=== PATIENT | female | born 1980 | race Caucasian/White ===

== ENCOUNTER 2022-02-10 09:23 | Emergency (ER) | payer MEDICAID ==
[~2022-02-10] VITALS: Ht 167.6 cm; Wt 68.0 kg
--- NOTE | 2022-02-10 09:23 | NUR ---
SBAR to JULIO March
[2022-02-10] MEDS ORDERED: IV NORMAL SALINE 1000 ML BAG IV ONE (10:00)
[2022-02-10] MEDS ORDERED: ONDANSETRON 4 MG/2 ML VIAL IV ONE (10:00)
[2022-02-10] MEDS ORDERED: LORAZEPAM 0.5 MG TABLET PO ONE (10:00)
[2022-02-10] MEDS ORDERED: hydrOXYzine HCL 25 MG TABLET PO ONE (10:00)
[2022-02-10] MEDS ORDERED: ONDANSETRON 4 MG/2 ML VIAL ONE (10:06)
[2022-02-10] MEDS ORDERED: LORAZEPAM 0.5 MG TABLET ONE (10:06)
[2022-02-10] MEDS ORDERED: hydrOXYzine HCL 25 MG TABLET ONE (10:06)
[2022-02-10 10:16] LABS: MEAN CORPUSCULAR HEMOGLOBIN 27.2 uug (24.7-32.8); MEAN CORPUSCULAR VOLUME 82.4 fL (75.5-95.3); PLATELET COUNT (AUTO) 262 K/uL (179-408)
[2022-02-10 10:30] LABS: CARBON DIOXIDE 23 mmol/L (21-32); CHLORIDE 100 mmol/L (98-107); CREATININE 0.8 mg/dL (0.6-1.3); GLUCOSE 107 mg/dL (74-106); POTASSIUM 3.5 mmol/L (3.5-5.1); UREA NITROGEN, BLOOD 8 mg/dL (7-18)
--- NOTE | 2022-02-10 12:00 | NUR ---
HR 81 sbp 152/85 rr 18 and saturation of 99% on RA. patient resting comfortably.
[2022-02-10] MEDS ORDERED: SWABABLE VALVE TRANSFER SET EA MC ONE (14:00)
[2022-02-10] MEDS ORDERED: IOHEXOL 300MG/ML 100 ML INFUS..BTL ONE (14:00)
[2022-02-10] MEDS ORDERED: IV NORMAL SALINE 250 ML IV ONE (14:00)
--- NOTE | 2022-02-10 14:06 | NUR ---
Patient taken down for CTA chest.
--- NOTE | 2022-02-10 14:23 | NUR ---
Pt. back from CT.
--- NOTE | 2022-02-10 14:32 | NUR ---
Endorse pt. care to [facility] L[facility].
--- NOTE | 2022-02-10 14:44 | NUR ---
[employer] assumes care. Primary RN Anca is leaving. Patient is waiting for CTA results & disposition.
--- NOTE | 2022-02-10 14:51 | NUR ---
IV removed. Catheter intact and site benign. Pressure and 4x4 gauze applied to site. No bleeding noted. Patient discharged to home in stable condition with brisk steady gait. Written and verbal after care instructions given with [place] director product. Patient verbalizes understanding of instructions. Stressed follow up with primary doctor or return to ER for worsening s/s.
== END 2022-02-10 14:51 | disposition home or self-care (01) ==
LOC: ER 09:23
DX: R07.9 Chest pain, unspecified (principal); Z72.0 Tobacco use
CPT/HCPCS: 99285; 96374; 71275; 71045; 96361; 80048; 85025; 85379; 84484 ×2; 36415; 93005; J2405; Q9967; J7040; A4663

== ENCOUNTER 2022-09-30 08:55 | Emergency (ER) | payer OTHER ==
[~2022-09-30] VITALS: Ht 167.6 cm; Wt 68.0 kg
[2022-09-30] MEDS ORDERED: HYDR-4077 PO (09:14)
[2022-09-30] MEDS ORDERED: SERT50TA PO (09:14)
[2022-09-30] MEDS ORDERED: LORAZEPAM 0.5 MG TABLET PO ONE (09:30)
[2022-09-30] MEDS ORDERED: IV NORMAL SALINE 1000 ML BAG IV ONE (09:30)
[2022-09-30] MEDS ORDERED: ONDANSETRON 4 MG/2 ML VIAL IV ONE (09:30)
[2022-09-30 09:34] LABS: *BILIRUBIN,URIN NEGATIVE (NEGATIVE); *BLOOD, URINE NEGATIVE (NEGATIVE); *CLARITY,URINE CLEAR (CLEAR); *COLOR,URINE YELLOW (YELLOW); *KETONES,URINE NEGATIVE (NEGATIVE); *UROBILINOGEN,URINE 0.2 E.U./dl (NORMAL); LEUKOCYTE ESTERASE ,URINE TRACE (NEGATIVE); NITRITE, URINE NEGATIVE (NEGATIVE); PH,URINE 8.5 (5.0-8.0); UGLUCOSE NEGATIVE (NEGATIVE)
[2022-09-30 09:35] LABS: *URINE HCG, QUAL NEGATIVE (NEGATIVE)
[2022-09-30 09:41] LABS: HEMATOCRIT 33.7 % (31.2-41.9); MEAN CORPUSCULAR VOLUME 83.5 fL (75.5-95.3); PLATELET COUNT (AUTO) 133 K/uL (179-408)
[2022-09-30] MEDS ORDERED: LORAZEPAM 0.5 MG TABLET ONE (09:42)
[2022-09-30] MEDS ORDERED: ONDANSETRON 4 MG/2 ML VIAL ONE (09:42)
--- NOTE | 2022-09-30 09:51 | NUR ---
PT IS IN ROOM #2A. DR NICHOLAS EVALUATED THE PT.
[2022-09-30 09:56] LABS: RBC,URINE 0-3 /HPF (0-3)
[2022-09-30 09:56] LABS: CARBON DIOXIDE 25 mmol/L (21-32); CHLORIDE 102 mmol/L (98-107); CREATININE 0.7 mg/dL (0.6-1.3); GLUCOSE 114 mg/dL (74-106); UREA NITROGEN, BLOOD 9 mg/dL (7-18)
[2022-09-30 09:57] LABS: BACTERIA,URINE MANY /HPF (NONE SEEN); CALCIUM CARBONATE CRYSTALS,UR NONE SEEN /HPF (NONE SEEN); CALCIUM OXALATE CRYSTALS,UR NONE SEEN /HPF (NONE SEEN); CALCIUM PHOSPHATE CRYSTALS,UR NONE SEEN /HPF (NONE SEEN); COARSE GRANULAR CASTS,URINE NONE SEEN /LPF; CYSTINE CRYSTALS,URINE NONE SEEN /HPF (NONE SEEN); FATTY CASTS,URINE NONE SEEN /LPF (NONE SEEN); MUCUS,URINE FEW /LPF (0-FEW); RED BLOOD CELL CASTS,URINE NONE SEEN /LPF (NONE SEEN); SPERM,URINE NONE SEEN /HPF (NONE SEEN); SQUAMOUS EPITHELIAL CELL,UR FEW /HPF (NONE SEEN); TRICHOMONAS,URINE NONE SEEN /HPF (NONE SEEN); TRIPLE PHOSPHATE CRYSTAL,UR NONE SEEN /HPF (NONE SEEN); TYROSINE CRYSTAL,URINE NONE SEEN /HPF (NONE SEEN); URIC ACID CRYSTALS,URINE NONE SEEN /HPF (NONE SEEN); URINE AMORPHOUS PHOSPHATES NONE SEEN /HPF; URINE AMORPHOUS URATE NONE SEEN /HPF; WAXY CASTS,URINE NONE SEEN /LPF (NONE SEEN); YEAST,URINE NONE SEEN /HPF (NONE SEEN)
[2022-09-30] MEDS ORDERED: NITR100C6 PO (11:12)
--- NOTE | 2022-09-30 11:41 | NUR ---
PT WAS D/C'd TO HOME. D/C INSTRUCTIONS GIVEN TO THE PT BY DR NICHOLAS.
[2022-09-30 11:42] VITALS: BP 146/76
== END 2022-09-30 11:43 | disposition home or self-care (01) ==
LOC: ER 08:55
DX: I10 Essential (primary) hypertension (principal); F41.9 Anxiety disorder, unspecified; R00.0 Tachycardia, unspecified; N39.0 Urinary tract infection, site not specified; R07.89 Other chest pain; F17.210 Nicotine dependence, cigarettes, uncomplicated; Z79.899 Other long term (current) drug therapy; Z20.822 Contact with and (suspected) exposure to COVID-19
CPT/HCPCS: 99285; 96374; 71045; 96361; 87426; 80048; 81001; 84703; 85025; 84484; 36415; 93005; J2405; J7040; A4663